=== PATIENT | female | born 2000 | race African-American/Black ===

== ENCOUNTER 2021-07-31 12:56 | Inpatient (IN) ==
[2021-07-31] MEDS ORDERED: 0.9 % Sodium Chloride 1,000 ML IVC ONE ×2 (15:25→17:06)
[2021-07-31 15:46] LABS: Basophils % 0.1 %; Hematocrit 35.1 % (35.3-44.9); Hemoglobin 11.7 g/dL (11.5-15.4); Immature Granulocytes % 0.4 % (0-4); Lymphocytes # 1.2 K/mcL (0.6-4.6); Lymphocytes % 7.6 %; Mean Corpuscular HGB Conc 33.3 g/dL (31.6-35.5); Mean Corpuscular Hemoglobin 28.9 pg (28.0-33.3); Mean Corpuscular Volume 86.7 fL (83.0-100.0); Mean Platelet Volume 10.3 fL (9.4-12.4); Monocytes # 1.5 K/mcL (0.0-1.3); Neutrophils # 12.5 K/mcL (1.6-8.9); Platelet Count 212 K/mcL (140-400); Red Blood Count 4.05 M/mcL (3.82-4.97); Red Cell Distribution Width 13.3 % (11.5-14.5); Segmented Neutrophils % 81.9 %; White Blood Count 15.3 K/mcL (4.3-11.1)
[2021-07-31 15:50] LABS: Bacteria,Urine Few per hpf (None-Few); Bilirubin,Urine Negative (Negative); Blood,Urine Large (Negative); Clarity,Urine Turbid (Clear); Color,Urine Yellow (Yellow); Glucose,Urine (UA) 70 mg/dL (Normal); Ketones,Urine 10 mg/dL (Negative); Leukocyte Esterase,Urine Large (Negative); Mucus,Urine Few per lpf (None-Few); Nitrite,Urine Positive (Negative); Protein,Urine 100 mg/dL (Neg-Trace); RBC,Urine TNTC per hpf (0-3); Specific Gravity,Urine 1.018 (1.010-1.025); Squamous Epithelial Cell,Urine Few per hpf (None-Few); Urobilinogen,Urine Normal (Normal); WBC,Urine TNTC per hpf (0-3)
[2021-07-31] MEDS ORDERED: cefTRIAXone 1,000 MG in Water for inj. (sterile) 10 ML IVP ONE (16:02)
[2021-07-31] MEDS ORDERED: Acetaminophen 325 MG TABLET PO ONE (16:04)
[2021-07-31 16:08] LABS: Alanine Aminotransferase 15 Units/L (7-52); Albumin 4.3 g/dL (3.5-5.7); Albumin/Globulin Ratio 1.3 (1.1-2.2); Alkaline Phosphatase 68 Units/L (34-104); Aspartate Amino Transferase 18 Units/L (13-39); BUN/Creatinine Ratio 6 (6-26); Bilirubin,Direct 0.1 mg/dL (0.0-0.2); Bilirubin,Indirect 0.5 mg/dL (0.0-1.0); Bilirubin,Total 0.6 mg/dL (0.3-1.0); Blood Urea Nitrogen 7 mg/dL (6-20); Calcium 9.3 mg/dL (8.6-10.3); Carbon Dioxide 21 mEq/L (23-29); Chloride 101 mEq/L (98-107); Globulin 3.4 g/dL (2.4-3.5); Glucose 138 mg/dL (70-105); Lipase 21 Units/L (11-82); Osmolality,Calculated 272 (280-300); Potassium 3.1 mEq/L (3.5-5.1); Sodium 131 mEq/L (136-145); Total Protein 7.7 g/dL (6.4-8.9); Troponin I < 0.03 ng/mL (< 0.04); eGFR For African Americans > 60 (> 60); eGFR For Non-African Americans > 60 (> 60)
[2021-07-31] MEDS ORDERED: Isovue-370 500 ML BOTTLE IVP ONE (17:05)
[2021-07-31] MEDS ORDERED: Morphine Sulfate 2 MG/ML SYRINGE IVP STA (17:20)
[2021-07-31] MEDS ORDERED: Naloxone 0.4 MG/ML INJ IVP PRN (17:55)
[2021-07-31] MEDS ORDERED: Melatonin 3 MG TABLET PO PRN (17:55)
[2021-07-31] MEDS ORDERED: Ketorolac 15 MG/ML VIAL IVP ONE (18:09)
[2021-07-31] MEDS: Ondansetron 4 MG/2 ML VIAL IVP PRN (21:21)
[2021-07-31] MEDS: Acetaminophen 325 MG TABLET PO PRN (21:21)
[2021-07-31] MEDS: 0.9 % Sodium Chloride 1,000 ML IVC SCH (21:22)
[2021-08-01] MEDS: MetroNIDAZOLE 500 MG/100 ML 500 MG/100 ML BAG IVPB SCH ×3 (01:07→17:04)
[2021-08-01] MEDS: PARoxetine 10 MG TABLET PO SCH ×2 (01:09→08:35)
[2021-08-01 02:32] LABS: Basophils % 0.2 %; Hematocrit 30.6 % (35.3-44.9); Immature Granulocytes % 0.7 % (0-4); Lymphocytes % 15.7 %; Mean Corpuscular HGB Conc 32.4 g/dL (31.6-35.5); Mean Corpuscular Hemoglobin 28.8 pg (28.0-33.3); Mean Platelet Volume 10.5 fL (9.4-12.4); Monocytes # 1.4 K/mcL (0.0-1.3); Monocytes % 10.7 %; Neutrophils # 9.4 K/mcL (1.6-8.9); Platelet Count 161 K/mcL (140-400); Red Blood Count 3.44 M/mcL (3.82-4.97); Red Cell Distribution Width 13.5 % (11.5-14.5); Segmented Neutrophils % 72.7 %; White Blood Count 12.9 K/mcL (4.3-11.1)
[2021-08-01 02:33] LABS: Hemoglobin 9.9 g/dL (11.5-15.4)
[2021-08-01 02:46] LABS: BUN/Creatinine Ratio 6 (6-26); Blood Urea Nitrogen 6 mg/dL (6-20); Calcium 7.5 mg/dL (8.6-10.3); Carbon Dioxide 21 mEq/L (23-29); Chloride 108 mEq/L (98-107); Glucose 112 mg/dL (70-105); Magnesium 1.3 mg/dL (1.6-2.6); Osmolality,Calculated 280 (280-300); Potassium 3.3 mEq/L (3.5-5.1); Sodium 136 mEq/L (136-145); eGFR For African Americans > 60 (> 60); eGFR For Non-African Americans > 60 (> 60)
[2021-08-01] MEDS: Acetaminophen 325 MG TABLET PO PRN (05:32)
[2021-08-01] MEDS: 0.9 % Sodium Chloride 1,000 ML IVC SCH (07:17)
[2021-08-01] MEDS: cefTRIAXone 2,000 MG in Water for inj. (sterile) 20 ML IVP SCH (07:17)
[2021-08-01] MEDS ORDERED: Potassium Effervescent 25 MEQ TABLET.EFF PO ONE (08:46)
[2021-08-01] MEDS: Ondansetron 4 MG/2 ML VIAL IVP PRN ×2 (09:53→17:06)
[2021-08-01] MEDS: Ketorolac 30 MG/ML VIAL IVP PRN (11:24)
[2021-08-01] MEDS: Prochlorperazine 10 MG/2 ML VIAL IVP PRN (19:18)
[2021-08-02] MEDS: MetroNIDAZOLE 500 MG/100 ML 500 MG/100 ML BAG IVPB SCH ×3 (00:21→15:12)
[2021-08-02 02:34] LABS: Basophils % 0.1 %; Hematocrit 30.6 % (35.3-44.9); Hemoglobin 9.9 g/dL (11.5-15.4); Immature Granulocytes % 0.5 % (0-4); Lymphocytes # 1.6 K/mcL (0.6-4.6); Lymphocytes % 11.4 %; Mean Corpuscular HGB Conc 32.4 g/dL (31.6-35.5); Mean Corpuscular Hemoglobin 28.5 pg (28.0-33.3); Mean Corpuscular Volume 88.2 fL (83.0-100.0); Mean Platelet Volume 10.7 fL (9.4-12.4); Monocytes # 1.4 K/mcL (0.0-1.3); Neutrophils # 10.9 K/mcL (1.6-8.9); Platelet Count 176 K/mcL (140-400); Red Blood Count 3.47 M/mcL (3.82-4.97); Red Cell Distribution Width 13.3 % (11.5-14.5)
[2021-08-02 02:52] LABS: BUN/Creatinine Ratio 9 (6-26); Blood Urea Nitrogen 8 mg/dL (6-20); Carbon Dioxide 20 mEq/L (23-29); Chloride 107 mEq/L (98-107); Glucose 99 mg/dL (70-105); Magnesium 1.9 mg/dL (1.6-2.6); Osmolality,Calculated 280 (280-300); Potassium 3.8 mEq/L (3.5-5.1); Sodium 136 mEq/L (136-145); eGFR For African Americans > 60 (> 60); eGFR For Non-African Americans > 60 (> 60)
[2021-08-02] MEDS: Acetaminophen 325 MG TABLET PO PRN ×3 (03:32→23:06)
[2021-08-02] MEDS: cefTRIAXone 2,000 MG in Water for inj. (sterile) 20 ML IVP SCH (08:26)
[2021-08-02] MEDS: PARoxetine 10 MG TABLET PO SCH (08:26)
[2021-08-02] MEDS ORDERED: MetroNIDAZOLE Vaginal Gel VG SCH (21:00)
[2021-08-02] MEDS: Prochlorperazine 10 MG/2 ML VIAL IVP PRN (21:22)
[2021-08-03 01:19] LABS: Basophils % 0.2 %; Eosinophils # 0.1 K/mcL (0.0-0.6); Eosinophils % 0.7 %; Hematocrit 28.3 % (35.3-44.9); Hemoglobin 9.6 g/dL (11.5-15.4); Immature Granulocytes % 0.4 % (0-4); Lymphocytes # 2.3 K/mcL (0.6-4.6); Lymphocytes % 18.8 %; Mean Corpuscular HGB Conc 33.9 g/dL (31.6-35.5); Mean Corpuscular Hemoglobin 29.1 pg (28.0-33.3); Mean Corpuscular Volume 85.8 fL (83.0-100.0); Mean Platelet Volume 10.4 fL (9.4-12.4); Monocytes # 1.2 K/mcL (0.0-1.3); Monocytes % 9.6 %; Neutrophils # 8.5 K/mcL (1.6-8.9); Platelet Count 204 K/mcL (140-400); Red Cell Distribution Width 13.2 % (11.5-14.5); Segmented Neutrophils % 70.3 %; White Blood Count 12.1 K/mcL (4.3-11.1)
[2021-08-03 01:36] LABS: BUN/Creatinine Ratio 10 (6-26); Blood Urea Nitrogen 8 mg/dL (6-20); Calcium 7.8 mg/dL (8.6-10.3); Carbon Dioxide 22 mEq/L (23-29); Chloride 107 mEq/L (98-107); Glucose 100 mg/dL (70-105); Osmolality,Calculated 280 (280-300); Potassium 3.1 mEq/L (3.5-5.1); Sodium 136 mEq/L (136-145); eGFR For African Americans > 60 (> 60); eGFR For Non-African Americans > 60 (> 60)
[2021-08-03] MEDS: Ketorolac 30 MG/ML VIAL IVP PRN (06:30)
[2021-08-03] MEDS ORDERED: Potassium Effervescent 25 MEQ TABLET.EFF PO ONE ×2 (07:16→08:30)
[2021-08-03] MEDS: PARoxetine 10 MG TABLET PO SCH (08:59)
[2021-08-03] MEDS: cefTRIAXone 2,000 MG in Water for inj. (sterile) 20 ML IVP SCH (08:59)
[2021-08-03] MEDS: Acetaminophen 325 MG TABLET PO PRN (08:59)
[2021-08-03 11:37] VITALS: BP 115/72; PULSE 88; TEMP 98.1; O2SAT 97
== END 2021-08-03 14:11 | disposition home or self-care (01) | DRG 872 ==
LOC: EMEROOARM 12:56 → 3ANU 12:56 → SUATTDRO 18:20 → 3ANU 18:41
PROVIDERS: ADMIT Hospitalist; ATTEND Hospitalist

== ENCOUNTER 2022-07-18 13:30 | Observation (INO) ==
[2022-07-18 15:49] LABS: Basophils # 0.1 K/mcL (0.0-0.2); Basophils % 0.6 %; Eosinophils # 0.3 K/mcL (0.0-0.6); Eosinophils % 3.5 %; Hematocrit 37.5 % (35.3-44.9); Hemoglobin 12.5 g/dL (11.5-15.4); Immature Granulocytes % 0.2 % (0-4); Lymphocytes # 3.2 K/mcL (0.6-4.6); Lymphocytes % 39.2 %; Mean Corpuscular HGB Conc 33.3 g/dL (31.6-35.5); Mean Corpuscular Hemoglobin 29.9 pg (28.0-33.3); Mean Corpuscular Volume 89.7 fL (83.0-100.0); Mean Platelet Volume 9.9 fL (9.4-12.4); Monocytes # 0.4 K/mcL (0.0-1.3); Monocytes % 5.3 %; Neutrophils # 4.2 K/mcL (1.6-8.9); Platelet Count 241 K/mcL (140-400); Red Blood Count 4.18 M/mcL (3.82-4.97); Red Cell Distribution Width 11.9 % (11.5-14.5); Segmented Neutrophils % 51.2 %; White Blood Count 8.1 K/mcL (4.3-11.1)
[2022-07-18 16:21] LABS: Albumin 4.2 g/dL (3.5-5.7); Albumin/Globulin Ratio 1.4 (1.1-2.2); Bilirubin,Total 0.4 mg/dL (0.3-1.0); Calcium 9.1 mg/dL (8.6-10.3); Globulin 2.9 g/dL (2.4-3.5); Potassium 3.9 mEq/L (3.5-5.1); Total Protein 7.1 g/dL (6.4-8.9)
[2022-07-18] MEDS ORDERED: Lactulose Oral Soln 20 GM/30 ML UDC PO ONE (17:50)
[2022-07-18] MEDS ORDERED: Ondansetron 4 MG/2 ML VIAL IVP PRN (20:16)
[2022-07-18] MEDS ORDERED: Naloxone 0.4 MG/ML INJ IVP PRN (20:16)
[2022-07-18] MEDS ORDERED: Acetaminophen 325 MG TABLET PO PRN (20:16)
[2022-07-18] MEDS: Lactulose Oral Soln 20 GM/30 ML UDC PO SCH (21:05)
[2022-07-18 21:07] LABS: Immature Reticulocyte % 5.6 % (11.0-38.0); Retculocyte # 0.04 M/mcL (0.05-0.10)
[2022-07-18 21:15] LABS: INR 1.1; Prothrombin Time 12.5 Seconds (9.4-12.1)
[2022-07-18] MEDS: 0.9 % Sodium Chloride 1,000 ML IVC SCH (21:16)
[2022-07-18 21:18] LABS: Activated Partial Thrombo Time 34.1 Seconds (26.0-36.0)
[2022-07-18 21:25] LABS: % Iron Saturation 25 % (15-50); Iron 100 mcg/dL (50-170); Lactate Dehydrogenase 138 Units/L (140-271); Transferrin 286 mg/dL (203-362)
[2022-07-18 21:43] LABS: Ferritin 14 ng/mL (10-120)
[2022-07-18] MEDS: Pantoprazole 40 MG VIAL IVP SCH (22:40)
[2022-07-19] MEDS: Lactulose Oral Soln 20 GM/30 ML UDC PO SCH ×2 (09:10→22:00)
[2022-07-19] MEDS: Pantoprazole 40 MG VIAL IVP SCH (09:11)
[2022-07-19 14:54] LABS: Bacteria,Urine Few per hpf (None-Few); Bilirubin,Urine Negative (Negative); Blood,Urine Negative (Negative); Clarity,Urine Turbid (Clear); Color,Urine Light-Yellow (Yellow); Glucose,Urine (UA) Normal (Normal); Hyaline Casts,Urine Few per lpf (None Seen); Ketones,Urine Negative (Negative); Leukocyte Esterase,Urine Negative (Negative); Mucus,Urine Few per lpf (None-Few); Nitrite,Urine Negative (Negative); PH,Urine 5.5 pH Units (5.0-8.0); Protein,Urine Negative (Neg-Trace); RBC,Urine 0-3 per hpf (0-3); Specific Gravity,Urine 1.015 (1.010-1.025); Squamous Epithelial Cell,Urine Many per hpf (None-Few); Urobilinogen,Urine Normal (Normal); WBC,Urine 0-3 per hpf (0-3)
[2022-07-19 15:58] LABS: Amphetamine Screen,Urine Negative ng/mL (Cutoff=1000); Barbiturate Screen,Urine Negative ng/mL (Cutoff=200); Benzodiazepines Screen,Urine Negative ng/mL (Cutoff=200); Cannabinoid Screen,Urine Negative ng/mL (Cutoff = 50); Cocaine Screen,Urine Negative ng/mL (Cutoff= 300); Opiate Screen,Urine Negative ng/mL (Cutoff=300); Phencyclidine Screen,Urine Negative ng/mL (Cutoff=25)
[2022-07-19 20:04] LABS: Basophils % 0.4 %; Eosinophils # 0.3 K/mcL (0.0-0.6); Eosinophils % 4.1 %; Hematocrit 33.7 % (35.3-44.9); Hemoglobin 11.1 g/dL (11.5-15.4); Immature Reticulocyte % 6.7 % (11.0-38.0); Lymphocytes # 3.2 K/mcL (0.6-4.6); Lymphocytes % 46.8 %; Mean Corpuscular HGB Conc 32.9 g/dL (31.6-35.5); Mean Corpuscular Hemoglobin 29.8 pg (28.0-33.3); Mean Corpuscular Volume 90.6 fL (83.0-100.0); Mean Platelet Volume 9.8 fL (9.4-12.4); Monocytes # 0.4 K/mcL (0.0-1.3); Monocytes % 5.1 %; Platelet Count 190 K/mcL (140-400); Red Blood Count 3.72 M/mcL (3.82-4.97); Red Cell Distribution Width 11.9 % (11.5-14.5); Retculocyte # 0.04 M/mcL (0.05-0.10); Reticulocyte % 1.1 % (1.6-2.8); Segmented Neutrophils % 43.6 %; White Blood Count 6.8 K/mcL (4.3-11.1)
[2022-07-19 20:15] LABS: INR 1.1; Prothrombin Time 12.6 Seconds (9.4-12.1)
[2022-07-19 20:17] LABS: Activated Partial Thrombo Time 33.3 Seconds (26.0-36.0)
[2022-07-19 20:28] LABS: Albumin 3.5 g/dL (3.5-5.7); Albumin/Globulin Ratio 1.5 (1.1-2.2); Bilirubin,Total 0.4 mg/dL (0.3-1.0); Calcium 8.4 mg/dL (8.6-10.3); Globulin 2.4 g/dL (2.4-3.5); Potassium 3.7 mEq/L (3.5-5.1); Total Protein 5.9 g/dL (6.4-8.9)
[2022-07-20] MEDS: 0.9 % Sodium Chloride 1,000 ML IVC SCH (00:07)
[2022-07-20] MEDS ORDERED: ANTIHEMOPHILIC FACTOR IVPB SCH ×2 (07:30→21:00)
[2022-07-20] MEDS ORDERED: VWF IVPB SCH ×2 (07:30→21:00)
[2022-07-20] MEDS ORDERED: Lidocaine -MPF 2% 2 ML VIAL ONE (08:08)
[2022-07-20] MEDS: Pantoprazole 40 MG VIAL IVP SCH (08:51)
[2022-07-20] MEDS: Lactulose Oral Soln 20 GM/30 ML UDC PO SCH (08:53)
[2022-07-20] MEDS ORDERED: Simethicone 40 MG/0.6 ML MLS ONE (09:01)
[2022-07-20] MEDS ORDERED: *HR* Propofol 200 MG/20 ML VIAL IVP ONE (09:17)
[2022-07-20 11:58] VITALS: O2SAT 98
[2022-07-20 14:26] VITALS: BP 112/73; PULSE 86; TEMP 98.3
[2022-07-20] MEDS ORDERED: [UNRECOGNIZED DRUG - OTHER] IVPB ONE (19:36)
[2022-07-20] MEDS ORDERED: ANTIHEMOPHILIC FACTOR IVPB ONE (19:36)
== END 2022-07-20 15:30 | disposition home or self-care (01) ==
LOC: 3ANU 13:30 → EMEROOARM 13:30 → 3ANU 20:13
PROVIDERS: ADMIT Surgery; ATTEND Surgery